=== PATIENT | female | born 1985 | race Caucasian/White ===

== ENCOUNTER → 2016-07-24 | Outpatient (CLI) | payer OTHER ==
[~2016-07-24] MED LIST: CALC625T PO; MULT-160 PO; NORE1CHW11 PO; RANI150C4 PO
== END | disposition home or self-care (01) ==
LOC: C.PAPS 10:12
PROVIDERS: ATTEND Obstetrics & Gynecology
DX: Z12.4 Encounter for screening for malignant neoplasm of cervix (principal)

== ENCOUNTER → 2017-05-03 | Outpatient (CLI) | payer BC ==
[2017-05-03 12:13] LABS: URINE APPEARANCE CLEAR (CLEAR); URINE BILIRUBIN NEG (NEG); URINE COLOR YELLOW; URINE NITRITE NEG (NEG); URINE SPECIFIC GRAVITY 1.013 (1.000-1.030); UROBILINOGEN NEG (NEG)
[2017-05-03 12:21] LABS: MANUAL MICROSCOPIC REQUIRED? NO; REVIEW REQ? NO
== END | disposition home or self-care (01) ==
LOC: C.LABSPEC 11:27
PROVIDERS: ATTEND Obstetrics & Gynecology
DX: Z34.01 Encounter for supervision of normal first pregnancy, first trimester (principal); Z3A.00 Weeks of gestation of pregnancy not specified

== ENCOUNTER → 2017-05-10 | Outpatient (CLI) | payer BC ==
[2017-05-10 14:36] LABS: BASO % 0.3 %; BASO ABS # 0.02 K/uL (0-0.2); COMPLETE YES; EOS % 0.3 %; HEMATOCRIT 34.1 % (37-47); IG% 0.2 %; LYMPH % 26.2 %; LYMPH ABS # 1.57 K/uL (1.2-3.4); MEAN CELL VOLUME 91.9 fL (80-100); MEAN CORPUSCULAR HEMOGLOBIN 31.8 pg (25-34); MEAN CORPUSCULAR HGB CONC 34.6 g/dl (32-36); MEAN PLATELET VOLUME 9.9 fL (7.4-10.4); MONO % 8.3 %; NEUT % 64.7 %; PLATELET COUNT 228 K/uL (130-400); RED BLOOD COUNT 3.71 M/uL (4.2-5.4); WHITE BLOOD COUNT 5.99 K/uL (4.8-10.8)
== END | disposition home or self-care (01) ==
LOC: C.LAB1850 13:16
PROVIDERS: ATTEND Obstetrics & Gynecology
DX: Z34.01 Encounter for supervision of normal first pregnancy, first trimester (principal)

== ENCOUNTER → 2017-07-09 | Outpatient (CLI) | payer BC | END | disposition home or self-care (01) | LOC: C.LAB1850 09:46 | PROVIDERS: ATTEND Obstetrics & Gynecology | DX: Z34.02 Encounter for supervision of normal first pregnancy, second trimester (principal); Z3A.00 Weeks of gestation of pregnancy not specified ==

== ENCOUNTER 2017-08-20 16:43 | Outpatient (CLI) | payer BC ==
[~2017-08-20] VITALS: Ht 162.6 cm; Wt 66.4 kg
[2017-08-20] MEDS ORDERED: OMEG10007 PO (17:55)
[2017-08-20] MEDS ORDERED: PRENTAB26 PO (17:55)
[2017-08-20] MEDS ORDERED: CALC500C70 PO (17:55)
[2017-08-20] MEDS ORDERED: DOCU-94 PO (17:55)
[2017-08-20 17:56] VITALS: Ht 162.6 cm; Wt 66.4 kg
[2017-08-20] MEDS ORDERED: LACTATED RINGER'S 1000ML 1,000 ML IV PRN (20:36)
[2017-08-20] MEDS ORDERED: LACTATED RINGER'S 1000ML 1,000 ML IV SCH (20:36)
[2017-08-20 20:50] VITALS: BP 130/79; PULSE 72; TEMP 36.8
[2017-08-20 21:06] VITALS: BP 110/63; PULSE 62; TEMP 36.9
== END 2017-08-20 21:15 | disposition home or self-care (01) ==
LOC: C.OPB 16:43 → C.LD 16:45 → C.OPB 21:15
PROVIDERS: ATTEND Obstetrics & Gynecology
DX: Z34.82 Encounter for supervision of other normal pregnancy, second trimester (principal); V43.62XA Car passenger injured in collision with other type car in traffic accident, initial encounter; Z3A.22 22 weeks gestation of pregnancy

== ENCOUNTER → 2017-10-02 | Outpatient (CLI) | payer BC ==
[~2017-10-02] MED LIST changes: +CALC500C70 PO; -CALC625T PO; +DOCU-94 PO; -MULT-160 PO; -NORE1CHW11 PO; +OMEG10007 PO; +PRENTAB26 PO; -RANI150C4 PO
[2017-10-02 10:06] LABS: HEMATOCRIT 27.5 % (37-47); HEMOGLOBIN 9.4 g/dL (12.0-16.0)
== END | disposition home or self-care (01) ==
LOC: C.LAB1850 09:26
PROVIDERS: ATTEND Obstetrics & Gynecology
DX: Z34.03 Encounter for supervision of normal first pregnancy, third trimester (principal)

== ENCOUNTER 2020-10-05 10:21 | Inpatient (IN) ==
[2020-10-05] MEDS ORDERED: OXYTOCIN 30 UNITS/500 ML BAG IV PRN ×3 (10:32→21:33)
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
[2020-10-05 11:09] LABS: Hematocrit (blood only) 32.9 % (37-47); Hemoglobin 11.2 g/dL (12.0-16.0); Mean Corpuscular Hemoglobin 32.5 pg (25-34); Mean Corpuscular Volume 95.4 fL (80-100); Mean Platelet Volume 9.4 fL (7.4-10.4); Platelet Count 224 K/uL (130-400); RDW Coefficient of Variation 14.1 % (11.5-14.5); Red Blood Count 3.45 M/uL (4.2-5.4); White Blood Count 9.48 K/uL (4.8-10.8)
[2020-10-05] MEDS: LACTATED RINGER'S 1,000 ML IV PRN ×2 (12:33→16:36)
[2020-10-05] MEDS ORDERED: BUPIVACAINE 0.25% 30 ML VIAL ONE (14:23)
[2020-10-05] MEDS ORDERED: ePHEDrine sulfate 50 MG/ML AMP ONE (14:23)
[2020-10-05] MEDS ORDERED: SODIUM CHLORIDE 0.9% INJ 10 ML VIAL ONE (14:23)
[2020-10-05] MEDS ORDERED: fentaNYL citrate 100 MCG/2 ML VIAL ONE (14:23)
[2020-10-05] MEDS ORDERED: fentaNYL 2MCG/ML ROPIVACAINE 1.25MG/ML 100 ML BAG EPI ONE (14:24)
[2020-10-05] MEDS ORDERED: NALOXONE HCL 1 MG in SODIUM CHLORIDE 0.9% 1000ML 1,000 ML IV PRN (14:28)
[2020-10-05] MEDS ORDERED: ONDANSETRON INJ 2 MG/ML 2 ML VIAL IV PRN (14:28)
[2020-10-05] MEDS ORDERED: fentaNYL 2MCG/ML ROPIVACAINE 1.25MG/ML 100 ML BAG EPI PRN (14:28)
[2020-10-05] MEDS ORDERED: NALOXONE HCL 0.4 MG/1 ML VIAL/CARP IV PRN (14:28)
[2020-10-05] MEDS ORDERED: ePHEDrine sulfate 50 MG/ML AMP IV PRN (14:28)
[2020-10-05] MEDS ORDERED: diphenhydrAMINE 50 MG/ML VIAL IV PRN (14:28)
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
--- NOTE | 2020-10-05 21:20 | Delivery Summary ---
Vaginal Delivery Summary Date of Service Patient presented with spontaneous rupture of membranes was augmented with oxytocin group B strep negative Covid negative she progressed to the point of discomfort where she requested epidural and then progressed rapidly from 6 cm to 9 cm she had some prolonged bradycardia episodes which were relieved by knee- chest position oxytocin was paused as the decelerations persist and she was given oxygen at that stage she was able to push over a few contractions delivering a baby in right occiput anterior position. There was a loose nuchal cord passed over the head x1 fluid was clear gentle traction no excessive force was used baby was delivered vigorous live male infant cord clamped and cut cord gases obtained cord blood obtained placenta removed with gentle traction IV Pitocin started uterine tone improved estimated blood loss 150 mL first-degree tear repaired with 3-0 Vicryl sponge and instrument counts correct Should be noted we did debate the use of the vacuum however because she was able to push so effectively I declined to use this and again baby vigorous at Vaginal Delivery Summary and 1st Degree LAC [facility] Vaginal Delivery Charge Vaginal Delivery Codes: 84131 global code for the antepartum, delivery, and post- Delivery Type Details: and 1st Degree LAC Procedure Anesthesia type: Epidural
[2020-10-05] MEDS ORDERED: SUPERCREAM 0.870% 15 GM JAR EXT PRN (21:33)
[2020-10-05] MEDS ORDERED: ACETAMINOPHEN 325 MG TAB PO PRN (21:33)
[2020-10-05] MEDS ORDERED: HYDROCORTISONE ACETATE 25 MG SUPP PR PRN (21:33)
[2020-10-05] MEDS ORDERED: DIPHTHERIA/TETANUS/PERTUSSIS 0.5 ML SYR/VIAL IM ONE (21:33)
[2020-10-05] MEDS ORDERED: BENZOCAINE 20% AER SPR 82.5 GM CAN EXT PRN (21:33)
[2020-10-05] MEDS ORDERED: oxyCODONE/ACETAMINOPHEN 5mg/325mg TAB PO PRN (21:33)
[2020-10-05] MEDS ORDERED: bisacodyL 10 MG SUPP PR PRN (21:33)
[2020-10-05 21:54] LABS: Base Excess Cord Arterial Bld -4.6 mEq/L (-9-1.8); Base Excess Cord Venous Blood -4.1 mEq/L (-7.7-1.9); CO2 Cord Arterial Blood 36 mmHg (39.1-73.5); Cord Venous Blood HCO3 20 mmol/L (18.4-26.8); Cord Venous Blood PCO2 36 mmHg (30.4-57.2); Cord Venous Blood PO2 28 mmHg (14.1-43.3); Cord Venous Blood pH 7.37 (7.20-7.44); HCO3 Cord Arterial Blood 20 mmol/L (19.7-28.5); Oxygen Sat Cord Arterial Blood 64.3 % (<60); PO2 Cord Arterial Blood 27 mmHg (4.1-31.7); pH Cord Arterial Blood 7.36 (7.1-7.38)
--- NOTE | 2020-10-05 22:23 | Anesthesia Procedure Note ---
Date of Service October 05, 2020 Anesthesia Post Epidural Note Vital Signs Vital Signs: Temp Pulse Resp BP Pulse Ox 36.7 C 74 18 138/90 88 L 10/05/20 19:07 10/05/20 22:17 10/05/20 22:00 10/05/20 22:17 10/05/20 21:19 Pain Intensity Bilateral Lower Abdomen: Pain Intensity: 3 Notes Mental Status: alert / awake / arousable and participated in evaluation Patient Amnestic to Procedure: No Nausea / Vomiting: adequately controlled Pain: adequately controlled Airway Patency, RR, SpO2: stable & adequate BP & HR: stable & adequate Hydration State: stable & adequate Neuraxial Anesthesia: was administered and sensory block is resolving Anesthetic Complications: no major complications apparent and Pt Satisfied with anesthetic care Epidural: Removed without complications and With tip intact
[2020-10-06] MEDS: IBUPROFEN 600 MG TAB PO PRN ×5 (01:54→20:29)
[2020-10-06 06:15] LABS: Hematocrit (blood only) 30.3 % (37-47); Hemoglobin 10.2 g/dL (12.0-16.0); Mean Corpuscular Hemoglobin 32.5 pg (25-34); Mean Corpuscular Hgb Conc 33.7 g/dL (32-36); Mean Corpuscular Volume 96.5 fL (80-100); Mean Platelet Volume 9.5 fL (7.4-10.4); Platelet Count 201 K/uL (130-400); RDW Coefficient of Variation 14.3 % (11.5-14.5); RDW Standard Deviation 49.8 fL (36.4-46.3); Red Blood Count 3.14 M/uL (4.2-5.4); White Blood Count 12.28 K/uL (4.8-10.8)
--- NOTE | 2020-10-06 07:30 | Obstetrical Progress Note ---
Date of Service <Reyna Tatum DO - Last Filed: 10/06/20 07:30> October 06, 2020 Assessment & Plan <Reyna Tatum DO - Last Filed: 10/06/20 07:30> (1) state: PPD #1 - PNL: Rh negative, RI, GBS neg, COVID neg -- Patient's baby blood type is AB+. Will provide patient with Rhogam prior to d/c home. - Feels well today. Eating well, voiding well, ambulating well. - Mild JOHNSON well controlled with Ibuprofen. Continue to monitor. BPs reassuring. No anemia (H&H 10.2, 30.3). - Pain well controlled with ibuprofen 600mg Q4H PRN - Continue routine care -- OOB, ambulation, diet progression as tolerated - After discharge will have 6 week follow-up with Dr. Castorena. - Plan for d/c home tomorrow. Subjective <Reyna Tatum DO - Last Filed: 10/06/20 07:30> Danette Andrade is a 35 y/o female who is PPD #1 following spontaneous vaginal delivery after prom at 40+1 weeks. She reports feeling well overall this morning. Moderate abdominal cramping and 7/10 pain well managed on analgesics. Voiding without dysuria. Tolerating meals overnight without difficulty. Patient has been able to ambulate some but she does note some lightheadedness and dizziness with some periods of ambulation. Does report a current mild headache which she attributes to fatigue. Not yet passing gas. Has persistent lochia with some improvement this morning. Currently . Review of Systems Denies fever or chills. Denies shortness of breath or cough. Denies chest pain. Denies breast pain. Denies dysuria. Denies leg pain or leg swelling. + headache. Denies changes in vision. Physical Exam <Reyna Tatmu DO - Last Filed: 10/06/20 07:30> General: Alert, oriented. No acute distress. Cardiac: Regular rate and rhythm. No murmurs. Respiratory: Clear to auscultation bilaterally a/p, no wheezes/rales/rhonchi. No increased work of breathing. Symmetrical chest rise. No respiratory distress. Abdomen: Soft, nontender, nondistended. Bowel sounds present. Uterus: Uterine fundus firm, palpable at umbilicus on right. Lower Extremities: No lower extremity edema or swelling. No deep calf pain. Jcarlos's negative bilaterally. Results & Data ([facility]) <Reyna Tatum DO - Last Filed: 10/06/20 07:30> Vital Signs (Past 12 Hours) Vital Signs Temp Pulse Pulse Resp BP BP Pulse Ox 10/06/20 03:30 37.0 C 61 16 110/70 97 10/06/20 00:15 37.1 C 75 16 120/74 10/05/20 23:17 73 110/63 10/05/20 23:15 73 110/63 10/05/20 23:02 72 109/61 10/05/20 22:47 68 120/68 10/05/20 22:45 68 18 120/68 10/05/20 22:32 78 129/89 10/05/20 22:17 74 138/90 10/05/20 22:15 74 18 138/90 10/05/20 22:03 82 138/86 10/05/20 22:00 70 18 127/60 10/05/20 21:49 70 127/60 10/05/20 21:45 75 18 137/90 10/05/20 21:32 75 137/90 10/05/20 21:30 75 18 137/90 10/05/20 21:19 83 88 L 10/05/20 21:16 77 131/73 99 10/05/20 21:15 83 18 88 L 10/05/20 21:11 80 100 10/05/20 21:07 83 89 L 10/05/20 21:06 83 100 10/05/20 21:01 105 H 100 10/05/20 21:00 18 10/05/20 20:58 66 125/69 10/05/20 20:56 66 100 10/05/20 20:51 65 100 10/05/20 20:46 69 100 10/05/20 20:44 67 139/89 10/05/20 20:41 78 99 10/05/20 20:36 74 95 10/05/20 20:31 73 99 10/05/20 20:29 18 10/05/20 20:28 75 149/79 H 10/05/20 20:26 90 100 10/05/20 20:21 64 99 10/05/20 20:16 60 99 10/05/20 20:15 77 108/67 10/05/20 20:11 77 97 10/05/20 20:06 65 99 10/05/20 20:01 65 99 10/05/20 20:00 18 10/05/20 19:59 57 L 120/77 10/05/20 19:56 59 L 98 10/05/20 19:51 65 99 10/05/20 19:46 78 95 10/05/20 19:43 58 L 118/76 10/05/20 19:41 53 L 98 10/05/20 19:36 52 L 98 10/05/20 19:31 65 99 10/05/20 19:30 18 10/05/20 19:29 56 L 142/79 H 10/05/20 19:26 54 L 98 Laboratory Results 10/06/20 10/05/20 10/05/20 Range/Units 05:37 21:09 21:09 WBC 12.28 H (4.8-10.8) K/uL RBC 3.14 L (4.2-5.4) M/uL Hgb 10.2 L (12.0-16.0) g/dL Hct 30.3 L (37-47) % MCV 96.5 (80-100) fL MCH 32.5 (25-34) pg MCHC 33.7 (32-36) g/dL RDW Std Deviation 49.8 H (36.4-46.3) fL RDW Coeff of Daphnie 14.3 (11.5-14.5) % Plt Count 201 (130-400) K/uL MPV 9.5 (7.4-10.4) fL Cord ABG pH 7.36 (7.1-7.38) Cord ABG pCO2 36 L (39.1-73.5) mmHg Cord ABG pO2 27 (4.1-31.7) mmHg Cord ABG HCO3 20 (19.7-28.5) mmol/L Cord ABG Base Excess -4.6 (-9-1.8) mEq/L Cord ABG O2 Sat 64.3 H (<60) % Cord VBG pH 7.37 (7.20-7.44) Cord VBG pCO2 36 (30.4-57.2) mmHg Cord VBG pO2 28 (14.1-43.3) mmHg Cord VBG HCO3 20 (18.4-26.8) mmol/L Cord VBG Base Excess -4.1 (-7.7-1.9) mEq/L Cord VBG O2 Sat 67.0 (<68) % Barometric Pressure 728.0 729.0 mm/Hg Blood Gas Comments HARRELL HARRELL COVID-19 Eval Order SARS-CoV-2, RNA, NAAT (NEGATIVE) 10/05/20 10/05/20 10/05/20 Range/Units 12:28 12:28 10:53 WBC 9.48 (4.8-10.8) K/uL RBC 3.45 L (4.2-5.4) M/uL Hgb 11.2 L (12.0-16.0) g/dL Hct 32.9 L (37-47) % MCV 95.4 (80-100) fL MCH 32.5 (25-34) pg MCHC 34.0 (32-36) g/dL RDW Std Deviation 49.0 H (36.4-46.3) fL RDW Coeff of Daphnie 14.1 (11.5-14.5) % Plt Count 224 (130-400) K/uL MPV 9.4 (7.4-10.4) fL Cord ABG pH (7.1-7.38) Cord ABG pCO2 (39.1-73.5) mmHg Cord ABG pO2 (4.1-31.7) mmHg Cord ABG HCO3 (19.7-28.5) mmol/L Cord ABG Base Excess (-9-1.8) mEq/L Cord ABG O2 Sat (<60) % Cord VBG pH (7.20-7.44) Cord VBG pCO2 (30.4-57.2) mmHg Cord VBG pO2 (14.1-43.3) mmHg Cord VBG HCO3 (18.4-26.8) mmol/L Cord VBG Base Excess (-7.7-1.9) mEq/L Cord VBG O2 Sat (<68) % Barometric Pressure mm/Hg Blood Gas Comments COVID-19 Eval Order Covid19 [facility]Now [facility] SARS-CoV-2, RNA, NAAT NEGATIVE (NEGATIVE) <Camila Castorena MD, FACOG - Last Filed: 10/06/20 07:42> Co-Signing Physician Notes Resident Physician Supervision Note: I was present with Dr. Tatum during the history and exam. I discussed the case with the resident and agree with the findings and plan as documented in the note. Any exceptions or clarifications are listed here: [None] Documented By: Camila Castorena MD, FACOG Resident Activity Tracking <Reyna Tatum, - Last Filed: 10/06/20 07:30> Resident Involvement: Resident Care Provided Care Provided: OB Delivery
[2020-10-06] MEDS: PRENATAL VITAMIN 1 TAB PO SCH (07:55)
[2020-10-06] MEDS: DOCUSATE SODIUM 100 MG CAP PO SCH ×2 (07:55→20:29)
[2020-10-06] MEDS: FERROUS SULFATE 325 MG TAB PO SCH (07:57)
[2020-10-06] MEDS: OMEGA-3 (PURIFIED FISH OIL) 1 GM CAP PO SCH ×3 (07:57→20:29)
[2020-10-06] MEDS ORDERED: NON-FORMULARY MEDICATION (Prenat.Vits,Cal,Min-Iron-Folic tablet) PO SCH (09:00)
[2020-10-06] MEDS ORDERED: bisacodyL 5 MG TABEC PO SCH (20:00)
[2020-10-07 06:22] LABS: Hematocrit (blood only) 30.9 % (37-47); Hemoglobin 10.4 g/dL (12.0-16.0)
--- NOTE | 2020-10-07 06:57 | Obstetrical Progress Note ---
Date of Service <Reyna Tatum DO - Last Filed: 10/07/20 06:57> October 07, 2020 Assessment & Plan <Reyna Tatum DO - Last Filed: 10/07/20 06:57> (1) state: - PNL: Rh negative, RI, GBS neg, COVID neg -- Received Rhogam on 10/06 - Feels well today. Eating well, voiding well, ambulating well. - Pain well controlled with ibuprofen 600mg Q4H PRN - Routine care -- OOB, ambulation, diet progression as tolerated - After discharge will have 6 week follow-up with Dr. Castorena. Subjective <Reyna Tatum DO - Last Filed: 10/07/20 06:57> Danette Andrade is a 35 y/o female who is PPD #2 following spontaneous vaginal delivery after prom at 40 +1 weeks. She reports feeling well overall this morning. Mild abdominal cramping and 4/10 pain well managed on analgesics. Voiding without dysuria. Tolerating meals overnight without difficulty, nausea, or vomiting. Patient has been able to ambulate some. She is passing gas and has had a bowel movement. Has persistent lochia with some improvement this morning. Currently both and supplementing with formula via bottle. Review of Systems Denies fever or chills. Denies shortness of breath or cough. Denies chest pain. Denies breast pain. Denies dysuria. Denies leg pain or leg swelling. Denies headache or changes in vision. Physical Exam <Reyna Tatum DO - Last Filed: 10/07/20 06:57> General: Alert, oriented. No acute distress. Cardiac: Regular rate and rhythm. No murmurs. Respiratory: Clear to auscultation bilaterally a/p, no wheezes/rales/rhonchi. No increased work of breathing. Symmetrical chest rise. No respiratory distress. Abdomen: Soft, nontender, nondistended. Bowel sounds present. Uterus: Uterine fundus firm, palpable 2 cm below umbilicus. Lower Extremities: No lower extremity edema or swelling. No deep calf pain. Jcarlos's negative bilaterally. Results & Data ([facility]) <Reyna Tatum DO - Last Filed: 10/07/20 06:57> Vital Signs (Past 12 Hours) Vital Signs Temp Pulse Resp BP 10/06/20 23:20 36.5 C 59 L 18 127/83 10/06/20 19:50 36.9 C 60 18 135/85 Laboratory Results 10/07/20 10/06/20 Range/Units 05:56 07:36 Hgb 10.4 L (12.0-16.0) g/dL Hct 30.9 L (37-47) % Blood Type A Negative Antibody Screen NEGATIVE Screen Negative (Negative) <Sonja Obando MD, FACOG - Last Filed: 10/07/20 07:26> Co-Signing Physician Notes Resident Physician Supervision Note: I was present with Dr. Tatum during the history and exam. I discussed the case with the resident and agree with the findings and plan as documented in the note. Any exceptions or clarifications are listed here: doing well, ready for d/c home. instructions reviewed. f/u 6wk pp check. had rhogam. Documented By: Sonja Obando MD, FACOG Resident Activity Tracking <Reyna Tatum, - Last Filed: 10/07/20 06:57> Resident Involvement: Resident Care Provided Care Provided: OB Delivery
[2020-10-07] MEDS: PRENATAL VITAMIN 1 TAB PO SCH (07:22)
[2020-10-07] MEDS: DOCUSATE SODIUM 100 MG CAP PO SCH (07:22)
[2020-10-07] MEDS: IBUPROFEN 600 MG TAB PO PRN (07:22)
[2020-10-07] MEDS: FERROUS SULFATE 325 MG TAB PO SCH (07:22)
== END 2020-10-07 10:35 | disposition home or self-care (01) | DRG 806 ==
LOC: 4S1 10:21 → 4S2 23:49